=== PATIENT | female | born 1955 | race Caucasian/White ===

== ENCOUNTER 2017-05-06 10:00 | Emergency (ER) | payer OTHER ==
[2017-05-06 10:20] VITALS: RESP 18; TEMP 98; O2SAT 96
--- NOTE | 2017-05-06 11:26 | EDPHY ---
H & P Time Seen by Provider: 05/06/17 10:41 HPI/ROS: This patient reports left foot pain for the past 2 weeks. She explains that the pain is achy in nature and mild at rest but becomes severe with attempts to bear weight. The location of the pain is 5th metatarsal and dorsum or the plantar aspect of the forefoot with associated swelling. She does recall any specific trauma. She did switch from tennis shoes to foot flops do the warm weather. She is unable to drive a vehicle a standard transmission because person clutch causes too much pain at this point. She has not tried any analgesics and notes no other exacerbating or alleviating factors. She has never had foot pain in this foot in the past. ROS: No fevers chills or other constitutional symptoms. Musculoskeletal: No ankle pain or other musculoskeletal pains. Neuro: No numbness or tingling Cardiovascular: No discoloration to the affected foot. 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 She reports that she is followed by [employer]-it seems that there with some rheumatologic component to her fibroma Smoking Status: Never smoked Physical Exam: Physical Exam Vital signs are normal. General: No acute distress Eyes: Pupils equal and react to light. Extraocular motions are intact. Lungs: No respiratory distress. Cardiac: Brisk capillary refill is intact throughout. Pulses are 2+ and symmetric in the affected extremity. Skin: No rash or pallor. Extremities: Atraumatic normal except for her left foot Left foot: Patient has mild swelling to the forefoot lateral slightly more than medial with no skin changes associated with it. There is mild tenderness to the 5th metatarsal, plantar aspect of the forefoot and dorsum of the forefoot. There is no ankle swelling or tenderness. No Achilles tenderness. No calf swelling or tenderness. Neuro: Alert with no sensorimotor deficits in the affected extremity. Initial differential diagnosis: Fracture, sprain, mono arthropathy-gout, pseudogout, rheumatoid arthritis, osteoarthritis, plantar fasciitis Constitutional: Initial Vital Signs Temperature (C) 36.6 C 05/06/17 10:17 Heart Rate 86 05/06/17 10:17 Respiratory Rate 18 05/06/17 10:17 Blood Pressure 126/79 H 05/06/17 10:17 O2 Sat (%) 96 05/06/17 10:17 O2 Delivery Mode Room Air Allergies/Adverse Reactions: Sulfa (Sulfonamide Antibiotics) Allergy (Verified 05/06/17 10:17) Home Medications: Medication Instructions Recorded Acetaminophen with Codeine 1 - 2 each PO Q4 PRN #18 tab 05/06/17 [Tylenol #3] Atenolol 05/06/17 MDM/Departure - MDM Diagnostics: Foot x-ray: Negative for fracture or other bony abnormality by my interpretation Imaging: I viewed and interpreted images myself ED Course/Re-evaluation: After a negative x-ray, proceeded with lab workup to evaluate for potential gout , or evidence of significant inflammation. CBC is normal, ESR is normal, uric acid is normal. Given benign labs and x-ray, I suspect a sprain given [place] I suggested that she follow up with Podiatry if her symptoms do not improve with a postop shoe, and NSAIDs over the next week or so. - Depart Disposition: Home, Routine, Self-Care Clinical Impression: Foot swelling Foot pain Qualifiers: Laterality: left Qualified Code(s): M79.672 - Pain in left foot Clinical Impression: (Ruled Out): Facial laceration, Shoulder contusion, Hand laceration, Fingers fractured, Minor head injury without loss of consciousness, Foot sprain Condition: Good Instructions: Foot Sprain (ED) Additional Instructions: Diagnosis: Foot pain Your x-ray of the foot today appears normal. Likewise, your labs are normal. It seems that you have a foot sprain the mechanism to this is not clear. Plan: Postop shoe and cane or crutches. Continue ibuprofen and Tylenol for discomfort as needed Call Dr. Watkins -irrigation installation specialist arrange follow-up appointment for further evaluation. Return for any significant worsening despite the treatment plan Prescriptions: Acetaminophen with Codeine [Tylenol #3] 1 - 2 each PO Q4 PRN #18 tab PRN Reason: Pain, Breakthrough Referrals: Raghavendra Santos MD [Primary Care Provider] - As per Instructions Esequiel Watkins DPM [Doctor of Podiatric Medicine] - As per Instructions
[2017-05-06 12:00] LABS: % IMMATURE GRANULYOCYTES 0.5 % (0.0-1.1); ABSOLUTE IMMATURE GRANULOCYTES 0.04 10^3/uL (0.00-0.10); ADD DIFF? NO; ADD MORPH? NO; ADD SCAN? NO; ATYPICAL LYMPHOCYTE FLAG 10 (0-99); FRAGMENT RBC FLAG 0 (0-99); HEMATOCRIT 44.2 % (38.0-47.0); HEMOGLOBIN 14.9 g/dL (12.6-16.3); LEFT SHIFT FLG 0 (0-99); LIPEMIA HEMOLYSIS FLAG 80 (0-99); MEAN CELL HEMOGLOBIN CONCENTR. 33.7 g/dL (32.4-36.7); MEAN CELL VOLUME 92.1 fL (81.5-99.8); MEAN PLATELET VOLUME 9.9 fL (8.7-11.7); PLATELET CLUMPS FLAG 0 (0-99); PLATELET COUNT 228 10^3/uL (150-400); RED CELL DISTRIBUTION WIDTH 12.9 % (11.5-15.2)
[2017-05-06 12:40] LABS: SEDIMENTATION RATE 13 MM/HR (0-30)
[2017-05-06 13:20] VITALS: BP 115/60; PULSE 85
== END 2017-05-06 13:18 | disposition home or self-care (01) ==
LOC: CED 10:00
DX: M79.672 Pain in left foot (principal); M79.89 Other specified soft tissue disorders; I10 Essential (primary) hypertension
CPT/HCPCS: 73630; 99284; L3260; 82947-QW; 84550-PO; 85025-PO; 85652-PO